=== PATIENT | male | born 1980 | race Caucasian/White ===

== ENCOUNTER 2017-01-21 03:43 | Emergency (ER) | payer MEDICAID ==
[~2017-01-21] VITALS: Ht 175.3 cm; Wt 121.0 kg
[~2017-01-21 03:43] MED LIST: ACET1TAB40 PO; CEPH-443 PO
[2017-01-21 03:47] VITALS: Ht 175.3 cm; Wt 121.0 kg
[2017-01-21] MEDS ORDERED: ONDANSETRON 4 MG INJ IV STA (04:15)
[2017-01-21] MEDS ORDERED: morphine 4 MG/ML VIAL IV STA (04:15)
[2017-01-21] MEDS ORDERED: SOD CHLORIDE 0.9% 1,000 ML IV STA (04:15)
[2017-01-21 04:56] LABS: BASOPHILS % 0.3 % (0.0-2.0); EOSINOPHILS # 0.1 10^3/ul (0.0-0.5); EOSINOPHILS % 0.9 % (0.0-7.0); HEMATOCRIT 41.5 % (42.0-52.0); HEMOGLOBIN 13.9 g/dl (14.0-18.0); LYMPHOCYTES # 4.4 10^3/ul (0.8-2.9); MEAN CORPUSCULAR HEMOGLOBIN 29.7 pg (29.0-33.0); MEAN CORPUSCULAR HGB CONC 33.5 g/dl (32.0-37.0); MEAN CORPUSCULAR VOLUME 88.7 fl (82.0-101.0); MEAN PLATELET VOLUME 8.8 fl (7.4-10.4); MONOCYTE # 0.9 10^3/ul (0.3-0.9); MONOCYTES % 7.2 % (0.0-11.0); NEUTROPHIL # 7.3 10^3/ul (1.6-7.5); NEUTROPHILS % 57.2 % (39.0-77.0); PLATELET COUNT 266 10^3/UL (140-415); RED BLOOD COUNT 4.68 10^6/ul (4.70-6.10); RED CELL DISTRIBUTION WIDTH 13.7 % (11.5-14.5); WHITE BLOOD COUNT 12.8 10^3/ul (4.8-10.8)
[2017-01-21 05:07] LABS: ADD UMIC YES; UR ASCORBIC ACID NEGATIVE (NEGATIVE); UR BILIRUBIN (Dip) NEGATIVE (NEGATIVE); UR BLOOD (Dip) 1+ mg/dL (NEGATIVE); UR CLARITY CLEAR (CLEAR); UR COLOR YELLOW (YELLOW); UR GLUCOSE (Dip) NEGATIVE (NEGATIVE); UR KETONES (Dip) NEGATIVE (NEGATIVE); UR LEUKOCYTE ESTERASE (Dip) NEGATIVE Leu/ul (NEGATIVE); UR NITRITE (Dip) NEGATIVE (NEGATIVE); UR RBC 1 /HPF (0-5); UR SPECIFIC GRAVITY (Dip) 1.017 (1.003-1.030); UR TOTAL PROTEIN (Dip) NEGATIVE (NEGATIVE); UR UROBILINOGEN (Dip) NEGATIVE (NEGATIVE)
[2017-01-21 05:10] LABS: ALBUMIN 4.5 g/dl (3.3-4.9); ALBUMIN/GLOBULIN RATIO 1.25; BILIRUBIN,INDIRECT 0.2 mg/dl (0-1.1); BILIRUBIN,TOTAL 0.2 mg/dl (0.2-1.3); CALCIUM 9.7 mg/dl (8.4-10.2); CREATININE 0.8 mg/dl (0.61-1.24); TOTAL PROTEIN 8.1 g/dl (6.1-8.1)
--- NOTE | 2017-01-21 05:27 | RADRPT ---
PROCEDURE: US Abdomen (right upper quadrant). CLINICAL INDICATION: Abdominal pain. TECHNIQUE: Multiple real-time longitudinal and transverse images of the right upper quadrant of th e abdomen were acquired utilizing a curved array transducer. Images were reviewed on a high-resoluti on PACS workstation. COMPARISON: None FINDINGS: The liver is normal in size and demonstrates increased echogenicity. No focal intrahepatic mass is identified. The gallbladder is normal in appearance. There is no pericholecystic fluid or gallblad christopher wall thickening. No intra or extrahepatic biliary dilatation is seen. The common bile duct nir ures 3.4 mm in maximal dimension. The portal and hepatic veins are patent demonstrating normal direc tional flow. The visualized portions of the pancreas are unremarkable with obscuration of the tail o f the pancreas. No free fluid is identified. The right kidney measures 11.1 cm in length. There is normal echogenicity within the right kidney. There is no perinephric fluid collection. No hydronephrosis, mass, or calculus is seen. IMPRESSION: Hepatic steatosis. Otherwise, unremarkable right upper quadrant ultrasound. RPTAT: HH .Radha Gonzales MD, Date Time Electronically viewed and signed by .Radha Gonzales MD, on 01/21/2017 05:27 .G/
[2017-01-21] MEDS ORDERED: LIDOCAINE/MYLANTA 40 ML BTL PO ONE (05:30)
[2017-01-21] MEDS ORDERED: HYDR-906 PO (06:03)
[2017-01-21] MEDS ORDERED: RANI150T9 PO (06:03)
[2017-01-21] MEDS ORDERED: ONDA4TAB11 PO (06:03)
--- NOTE | 2017-01-21 06:06 | ERD ---
ER Documentation Chief Complaint Date/Time DATE: 01/21/17 TIME: 06:04 Chief Complaint upper abd pain, n/v since yesterday morning. -diarrhea HPI This 36-year-old male comes in for 2 days of upper abdominal pain with nausea and vomiting. He has not had any diarrhea. No fever or chills. Denies any trauma and has no knowledge of any gallbladder dysfunction. ROS All systems reviewed and are negative except as per history of present illness. Medications Home Meds Active Scripts Ondansetron (Zofran Odt) 4 Mg Tab.rapdis, 4 MG PO Q6, #10 Prov:MADDISHANPERLA HAWKINS 01/21/17 Hydrocodone/Acetaminophen ([place] 5-325 Tablet) 1 Each Tablet, 1 EACH PO Q6 for SEVERE PAIN LEVEL 7-10, #14 TAB Prov:MADDISHAN DO 01/21/17 Ranitidine Hcl* (Zantac*) 150 Mg Tablet, 150 MG PO BID Y for EPIGASTRIC PAIN, # 30 TAB Prov:MARI LINDASHNOEL HAWKINS 01/21/17 Acetaminophen-Codeine* (Acetaminophen-Cod #3*) 300-30 Mg Tab, 1 TAB PO BID Y for PAIN, #20 TAB 0 Refills Prov:TOMMY AVELAR PA-C 05/24/15 Cephalexin* (Keflex*) 500 Mg Capsule, 500 MG PO BID, #14 CAP 0 Refills Prov:TOMMY AVELAR PA-C 05/24/15 Allergies Allergies: Coded Allergies: No Known Allergy (Unverified , 01/21/17) PMhx/Soc History of Surgery: No Anesthesia Reaction: No Hx Neurological Disorder: No Hx Respiratory Disorders: No Hx Cardiac Disorders: No Hx Psychiatric Problems: No Hx Miscellaneous Medical Probl: No Hx Alcohol Use: No Hx Substance Use: No Hx Tobacco Use: No Smoking Status: Unknown if ever smoked Physical Exam Vitals Vital Signs Date Time Temp Pulse Resp B/P Pulse Ox O2 Delivery O2 Flow Rate FiO2 01/21/17 03:47 98.2 67 18 132/72 98 Physical Exam Const: [] Mild distress, clutching upper stomach appears uncomfortable. Head: Atraumatic Eyes: Normal Conjunctiva ENT: Normal External Ears, Nose and Mouth. Neck: Full range of motion..~ No meningismus. Resp: Clear to auscultation bilaterally Cardio: Regular rate and rhythm, no murmurs Abd: Soft, mild epigastric tenderness without guarding or rebound., non distended. Normal bowel sounds Skin: No petechiae or rashes Back: No midline or flank tenderness Ext: No cyanosis, or edema Neur: Awake and alert and oriented 3, no focal deficit Psych: Normal Mood and Affect Result Diagram: 01/21/1743901/21/17439 Results 24 hrs Laboratory Tests Test 01/21/17 04:40 White Blood Count 12.810^3/ul Red Blood Count 4.6810^6/ul Hemoglobin 13.9g/dl Hematocrit 41.5% Mean Corpuscular Volume 88.7fl Mean Corpuscular Hemoglobin 29.7pg Mean Corpuscular Hemoglobin Concent 33.5g/dl Red Cell Distribution Width 13.7% Platelet Count 49393^3/UL Mean Platelet Volume 8.8fl Neutrophils % 57.2% Lymphocytes % 34.0% Monocytes % 7.2% Eosinophils % 0.9% Basophils % 0.3% Nucleated Red Blood Cells % 0.0/100WBC Neutrophils # 7.310^3/ul Lymphocytes # 4.410^3/ul Monocytes # 0.910^3/ul Eosinophils # 0.110^3/ul Basophils # 0.010^3/ul Nucleated Red Blood Cells # 0.010^3/ul Urine Color YELLOW Urine Clarity CLEAR Urine pH 6.0 Urine Specific [place] 1.017 Urine Ketones NEGATIVEmg/dL Urine Nitrite NEGATIVEmg/dL Urine Bilirubin NEGATIVEmg/dL Urine Urobilinogen NEGATIVEmg/dL Urine Leukocyte Esterase NEGATIVELeu/ul Urine Microscopic RBC 1/HPF Urine Microscopic WBC 0/HPF Urine Hemoglobin 1+mg/dL Urine Glucose NEGATIVEmg/dL Urine Total Protein NEGATIVEmg/dl Sodium Level 146mmol/L Potassium Level 4.0mmol/L Chloride Level 100mmol/L Carbon Dioxide Level 29mmol/L Anion Gap 21 Blood Urea Nitrogen 18mg/dl Creatinine 0.80mg/dl Glucose Level 109mg/dl Calcium Level 9.7mg/dl Total Bilirubin 0.2mg/dl Direct Bilirubin 0.00mg/dl Indirect Bilirubin 0.2mg/dl Aspartate Amino Transf (AST/SGOT) 34IU/L Alanine Aminotransferase (ALT/SGPT) 52IU/L Alkaline Phosphatase 96IU/L Total Protein 8.1g/dl Albumin 4.5g/dl Globulin 3.60g/dl Albumin/Globulin Ratio 1.25 Lipase 77U/L Current Medications Medications (Trade) Dose Ordered Sig/Radha Route PRN Reason Start Time Stop Time Status Last Admin Dose Admin Sodium Chloride (NS) 1,000 ml @ 1,000 mls/hr Q1H STAT IV 01/21/17 04:15 01/21/17 05:14 DC 01/21/17 04:46 Morphine Sulfate (morphine) 4 mg ONCE STAT IV 01/21/17 04:15 01/21/17 04:17 DC 01/21/17 04:43 Ondansetron HCl (Zofran Inj) 4 mg ONCE STAT IV 01/21/17 04:15 01/21/17 04:17 DC 01/21/17 04:43 Miscellaneous Medication (Gi Cocktail (2)) 40 ml ONCE ONCE PO 01/21/17 05:30 01/21/17 05:31 DC 01/21/17 05:21 Procedures/MDM Possible viral gastritis versus erosive gastritis. Patient was given morphine, Zofran and GI cocktail which led to great improvement of his symptoms. He is feeling better. Ultrasound did not yield any results. CT scan was ordered because of patient's initial presentation and white blood cell count. Patient was also given a liter of normal saline. His condition is improved in the emergency room his CAT scan is pending will be followed by the oncoming physician Right upper quadrant ultrasound interpretation: No acute process. No gallstones a limited study secondary to habitus CT abdomen pelvis interpretation: Pending interpretation by oncoming physician and radiologist. Departure Diagnosis: Primary Impression: Vomiting Additional Impressions: Gastritis Abdominal pain Condition: Stable Patient Instructions: Abdominal Pain, Vomiting (6Y-Adult) Referrals: COMMUNITY CLINICS YOU HAVE RECEIVED A MEDICAL SCREENING EXAM AND THE RESULTS INDICATE THAT YOU DO NOT HAVE A CONDITION THAT REQUIRES URGENT TREATMENT IN THE EMERGENCY DEPARTMENT. FURTHER EVALUATION AND TREATMENT OF YOUR CONDITION CAN WAIT UNTIL YOU ARE SEEN IN YOUR DOCTORS OFFICE WITHIN THE NEXT 1-2 DAYS. IT IS YOUR RESPONSIBILITY TO MAKE AN APPOINTMENT FOR FOLOW-UP CARE. IF YOU HAVE A PRIMARY DOCTOR --you should call your primary doctor and schedule an appointment IF YOU DO NOT HAVE A PRIMARY DOCTOR YOU CAN CALL OUR PHYSICIAN REFERRAL HOTLINE AT IF YOU CAN NOT AFFORD TO SEE A PHYSICIAN YOU CAN CHOSE FROM THE FOLLOWING COMMUNITY CLINICS [facility] [address] [facility] [address] [facility]. [facility] [address] [facility] [address] [facility]. [facility] [address] [facility]. [facility] [address] Additional Instructions: Call your primary care doctor TOMORROW for an appointment during the next 2-3 days.See the doctor sooner or return here if your condition worsens before your appointment time. SHAN LINDA DO Jan 21, 2017 06:06
--- NOTE | 2017-01-21 06:13 | RADRPT ---
PROCEDURE: CT Abdomen and pelvis without contrast. CLINICAL INDICATION: Abdominal pain. Vomiting. TECHNIQUE: CT scan of the abdomen and pelvis without contrast was performed on a multidetector hig h-resolution CT scan. . Coronal and sagittal reformatted images were obtained from the axial [facility] images. Standard CT scan of the abdomen pelvis without contrast protocols were performed. The total exam CTDI equals 23.62 mGy and the total exam DLP equals 1667.79 mGy-cm. One or more of the following dose reduction techniques were used: - Automated exposure control. - Adjustment of the mA and/or kV according to patient size. Use of iterative reconstruction technique. COMPARISON: Abdominal ultrasound same day FINDINGS: The kidneys are normal in size without evidence of calcified renal calculi hydronephrosis or intra r enal masses bilaterally. The ureters and urinary bladder are unremarkable. The prostate is unremark able. The appendix is unremarkable. Mild diverticular changes of the descending colon but no CT evidence o f diverticulitis. Remainder the colon is unremarkable. There is a small hiatal hernia with the stom ach otherwise unremarkable. There is mild dilatation of the third and fourth portion of the duodenu m and mild dilatation proximal jejunum with normal caliber mid and distal small bowel the transition zone not fully demonstrated of uncertain etiology but may represent ileus. Enteritis cannot be exc luded. Negative for intra-abdominal free air free fluid abscesses or lymphadenopathy. The liver spleen pancreas adrenal glands and gallbladder are unremarkable. No evidence of biliary d uctal dilation. There is patchy parenchymal changes at both lung bases which may all be due to atelectasis though de veloping infiltrates cannot be excluded. The abdominal and pelvic perez are unremarkable. Minimal degenerative changes of the lower thoracic and lumbar spine without acute osseous findings are osteo blastic/osteolytic lesions. The aorta is unremarkable. IMPRESSION: 1. Mild dilatation of the second and third portions of the duodenum and proximal jejunum with raj l caliber distal small bowel transition zone not clearly demonstrated may represent enteritis or ile us. 2. Diverticular changes of the descending colon but no evidence of diverticulitis. Unremarkable ap pendix. 3. Negative for intra-abdominal free air fluid abscesses or lymphadenopathy. 4. No calcified urinary calculi or obstructive uropathy. 5. Bibasilar parenchymal changes may represent atelectasis or developing infiltrates cannot be excl uded and recommend clinical correlation. RPTAT:AAJJ hSagufta Newell, Physician Date Time Electronically viewed and signed by Shagufta Newell Physician on 01/21/2017 06:12 ALIYAH/
[2017-01-21 07:08] VITALS: BP 130/79; PULSE 80; RESP 20
== END 2017-01-21 07:09 | disposition home or self-care (01) ==
LOC: E/R 03:43
DX: R11.10 Vomiting, unspecified (principal); K29.70 Gastritis, unspecified, without bleeding
CPT/HCPCS: 36415; 74176; 76705; 80053; 81001; 83690; 85025; 96374; 96375; J2270; J2405; J7030; Z7502; Z7610

== ENCOUNTER 2018-01-21 10:44 | Emergency (ER) | END 2018-01-21 13:08 | disposition home or self-care (01) ==

== ENCOUNTER 2018-02-11 21:23 | Emergency (ER) | END 2018-02-12 00:04 | disposition left against medical advice (07) ==